=== PATIENT | female | born 1950 | race Caucasian/White ===

== ENCOUNTER → 2017-11-28 | Outpatient (CLI) | payer BC, MEDICARE ==
[~2017-11-28] MED LIST: AMOX-362 PO; ASCO-182 PO; LACT1CAP6 PO; LISI-355 PO; LUTE10TA3 PO; MAGN250T34 PO; METH500T6 PO; PYRI100T57 PO
--- NOTE | 2017-11-28 17:03 | RADIOLOGY IMAGING REPORT ---
FACILITY: [facility] - [place] PATIENT NAME: Sabine Paz : 1950 MR: [id number] V: [id number] EXAM DATE: ORDERING PHYSICIAN: JENNIFER BENTLEY TECHNOLOGIST: Location: [facility] Patient: Sabine Paz : 1950 Visit/Account:[id number] Date of Sevice: 11/28/2017 CT CHEST HIGH RES WO CONTRAST HISTORY: Interstitial lung disease TECHNIQUE: CT imaging was obtained through the chest without intravenous contrast. Images obtained on inspiration, expiration and prone. One of the following dose optimization techniques was utilized in the performance of this exam: automated exposure control; adjustment of the mA and/or kv accordin g to patient size; or use of iterative reconstruction technique. Specific details can be referenced i n the facility's radiology CT exam operational policy. CONTRAST: None COMPARISON: CT chest 10/01/2016 FINDINGS: CHEST: Lower neck: Negative. Vessels: Mild calcification of the thoracic aorta. Heart and pericardium: Negative. Mediastinum/hilum/lymph nodes: Negative. Lungs/pleura: Stable mild peripheral groundglass-reticular opacities with upper lobe predominance. Only minimal changes posteriorly within the lower lobes on prone images indicating a component of dep endent atelectasis. 3 mm noncalcified left lower lobe nodule (image 65), difficult to see on prior. No pleural effusion. No central endobronchial lesion or bronchiectasis. Upper abdomen: Cholecystectomy. Bones/soft tissues: Negative. IMPRESSION: 1. Stable mild peripheral groundglass type reticular opacities with upper lobe predominance. This i s a non-UIP pattern. 2. 3 mm noncalcified left lower lobe nodule which is difficult to visualize on prior exam. Report Dictated By: Denis Pena MD at 11/28/2017 4:42 PM Report E-Signed By: Denis Pena MD at 11/28/2017 4:58 PM WSN:[id number]
== END ==
LOC: CT 00:58
PROVIDERS: ATTEND Orthopaedic Surgery Hand Surgery
DX: R91.1 Solitary pulmonary nodule (principal); R91.8 Other nonspecific abnormal finding of lung field
CPT/HCPCS: 71250

== ENCOUNTER 2018-04-20 01:22 | Day surgery (SDC) | payer MEDICARE ==
[~2018-04-20] VITALS: Ht 157.5 cm; Wt 75.7 kg
[2018-04-20] VITALS (7 sets, daily range): BP systolic 104–157; BP diastolic 64–94
[~2018-04-20 01:22] MED LIST changes: +CALC1TAB85 PO; +MULT1CAP59 PO; +VITA40TA PO
[2018-04-20] MEDS ORDERED: LIDOCAINE MPF 1% 5 ML VIAL ONE (09:20)
[2018-04-20] MEDS ORDERED: PROPOFOL EMUL(*) 10MG/ML 20 ML 60 ML ONE (09:20)
[2018-04-20] MEDS ORDERED: NORMOSOL R SOLN(*) 1000 ML BAG 1,000 ML IV PRN ×2 (10:55→12:30)
[2018-04-20] MEDS ORDERED: LIDOCAINE/SOD BICARB 8.4% SYR ID ONE (12:30)
== END 2018-04-20 14:00 | disposition home or self-care (01) ==
LOC: OR 01:22
PROVIDERS: ATTEND Family Medicine
DX: Z12.11 Encounter for screening for malignant neoplasm of colon (principal); K57.30 Diverticulosis of large intestine without perforation or abscess without bleeding
CPT/HCPCS: 00812; 45378; J2001; J2704